=== PATIENT | male | born 2000 | race Two or more races ===

== ENCOUNTER 2020-07-30 00:02 | Emergency (ER) | payer MEDICAID, OTHER ==
[~2020-07-30] VITALS: Ht 175.3 cm; Wt 63.5 kg
[2020-07-30] MEDS ORDERED: MIDAZOLAM HCL 5 MG/ML-1ML VIAL IV ONE ×2 (03:30→04:45)
[2020-07-30 06:04] LABS: Amphetamine Screen, Urine NEGATIVE (NEGATIVE); Barbiturate Scree,Urine NEGATIVE (NEGATIVE); Benzodiazephine Screen, Urine POSITIVE (NEGATIVE); Cannabinoid Screen, Urine POSITIVE (NEGATIVE); Cocaine Screen, Urine NEGATIVE (NEGATIVE); Opiate Scree,Urine NEGATIVE (NEGATIVE)
[2020-07-30 06:12] LABS: Phencyclidine Screen, Urine NEGATIVE (NEGATIVE)
[2020-07-30] MEDS ORDERED: LORazepam 2MG/ML-1ML VIAL ONE (06:34)
[2020-07-30] MEDS ORDERED: HALOPERIDOL LACTATE 5 MG/ML INJ VIAL ONE (06:38)
[2020-07-30] MEDS ORDERED: diphenhdrAMINE HCL 50 MG/1 ML VL ONE (06:38)
[2020-07-30] MEDS ORDERED: HALOPERIDOL LACTATE 5 MG/ML INJ VIAL IM ONE (06:45)
[2020-07-30] MEDS ORDERED: diphenhdrAMINE HCL 50 MG/1 ML VL IV ONE (06:45)
[2020-07-30] MEDS ORDERED: LORazepam 2MG/ML-1ML VIAL IV ONE (06:45)
[2020-07-30 10:34] VITALS: BP 103/60
== END 2020-07-30 11:19 | disposition home or self-care (01) ==
LOC: EDBD 00:02 → ER 00:02
DX: F10.129 Alcohol abuse with intoxication, unspecified (principal); R41.82 Altered mental status, unspecified; Y90.8 Blood alcohol level of 240 mg/100 ml or more
CPT/HCPCS: 80307; 96372; 96374; 96375; 96376; 99285; J1200; J1630; J2060; J2250